=== PATIENT | female | born 1930 | race Caucasian/White ===

== ENCOUNTER 2018-07-24 12:10 | Emergency (ER) | payer MEDICARE ==
[~2018-07-24] VITALS: Ht 160 cm; Wt 58.5 kg
[2018-07-24] MEDS ORDERED: METOPROLOL TART50 MG PO (12:31)
[2018-07-24] MEDS ORDERED: LEVOTHYROXINE75 MCG PO (12:31)
[2018-07-24] MEDS ORDERED: ATORVASTATIN CA20 MG PO (12:31)
[2018-07-24] MEDS ORDERED: PANTOPRAZOLE SO40 MG PO (12:31)
[2018-07-24] MEDS ORDERED: FUROSEMIDE20 MG PO (12:31)
[2018-07-24] MEDS ORDERED: HYDRALAZINE HCL 20 MG/ML VIAL IV STA (13:50)
[2018-07-24] MEDS ORDERED: CLONIDINE HCL 0.2 MG TAB PO ONE (14:00)
[2018-07-24] MEDS ORDERED: LOSARTAN-HCTZ1 EAC1 PO (14:05)
== END 2018-07-24 15:10 | disposition home or self-care (01) ==
LOC: ER 12:10
DX: I10 Essential (primary) hypertension (principal); E03.9 Hypothyroidism, unspecified; K21.9 Gastro-esophageal reflux disease without esophagitis
CPT/HCPCS: 99282

== ENCOUNTER 2018-08-12 10:15 | Outpatient (RCR) | payer MEDICARE ==
[~2018-08-12 10:15] MED LIST: ATORVASTATIN CA20 MG PO; FUROSEMIDE20 MG PO; HYDROCORTISONE 1% CREAM 30 GM TUBE ONE; LEVOTHYROXINE75 MCG PO; LIDOCAINE VISC 2% SOLN 15 ML UDC ONE; LOSARTAN-HCTZ1 EAC1 PO; METOPROLOL TART50 MG PO; PANTOPRAZOLE SO40 MG PO
[2018-08-12] MEDS ORDERED: TRIAMCINOLONE ACET 0.1% CREAM 15 GM TUBE ONE (11:46)
== END 2018-08-20 ==
LOC: WCC 10:15
PROVIDERS: ATTEND Family Medicine Adult Medicine
DX: S81.802A Unspecified open wound, left lower leg, initial encounter (principal); R60.9 Edema, unspecified; I87.2 Venous insufficiency (chronic) (peripheral); E03.9 Hypothyroidism, unspecified; I10 Essential (primary) hypertension; E78.01 Familial hypercholesterolemia; K21.9 Gastro-esophageal reflux disease without esophagitis; X58.XXXA Exposure to other specified factors, initial encounter

== ENCOUNTER 2018-09-03 12:58 | Outpatient (RCR) | payer MEDICARE ==
[~2018-09-03 12:58] MED LIST changes: +FLUOCINONIDE 0.05% 1 EA/15 GM TUBE ONE; -HYDROCORTISONE 1% CREAM 30 GM TUBE ONE; -LIDOCAINE VISC 2% SOLN 15 ML UDC ONE; +MINERAL OIL/PETROLAT/GLYCERI 6OZ BTL ONE
[2018-09-03] MEDS ORDERED: AMLODIPINE BESYL5 MG PO (22:22)
[2018-09-03] MEDS ORDERED: CLONIDINE HCL0.1 MG PO (22:22)
== END 2018-09-19 ==
LOC: WCC 12:58
PROVIDERS: ATTEND Family Medicine Adult Medicine
DX: S81.802A Unspecified open wound, left lower leg, initial encounter (principal); L30.8 Other specified dermatitis; I87.2 Venous insufficiency (chronic) (peripheral); R60.9 Edema, unspecified; I10 Essential (primary) hypertension; E03.9 Hypothyroidism, unspecified; E78.01 Familial hypercholesterolemia; K21.9 Gastro-esophageal reflux disease without esophagitis; X58.XXXA Exposure to other specified factors, initial encounter

== ENCOUNTER 2018-09-03 17:53 | Inpatient (IN) | payer MEDICARE ==
[~2018-09-03] VITALS: Ht 160 cm; Wt 64.0 kg
[~2018-09-03 17:53] MED LIST changes: -FLUOCINONIDE 0.05% 1 EA/15 GM TUBE ONE; -MINERAL OIL/PETROLAT/GLYCERI 6OZ BTL ONE
[2018-09-03 21:28] LABS: BASOPHILS % 0.2 % (0.0-1.0); HEMATOCRIT 35.4 % (34.2-44.1); HEMOGLOBIN 12.2 g/dL (12.0-16.0); LYMPHOCYTES # (AUTO) 0.9 (1.0-3.2); LYMPHOCYTES % 4.3 % (18.0-39.1); MEAN CORPUSCULAR HEMOGLOBIN 29.4 pg (28-32); MEAN CORPUSCULAR HGB CONC 34.5 g/dL (31-35); MEAN CORPUSCULAR VOLUME 85.3 fL (81-99); MONOCYTES # (AUTO) 1.2 (0.2-0.8); MONOCYTES % 6.1 % (4.4-11.3); NEUTROPHILS # (AUTO) 17.5 (2.1-6.9); NEUTROPHILS % 87.5 % (38.7-80.0); PLATELET COUNT 170 x10e3/uL (140-360); RED BLOOD COUNT 4.15 x10e6/uL (3.6-5.1); RED CELL DISTRIBUTION WIDTH 13.5 % (11.7-14.4)
[2018-09-03 21:44] LABS: ALANINE AMINOTRANSFERASE 24 IU/L (0-55); ALBUMIN 3.5 g/dL (3.5-5.0); ALBUMIN/GLOBULIN RATIO 1.4 (0.8-2.0); ALKALINE PHOSPHATASE 62 IU/L (40-150); ANION GAP 16.6 mmol/L (8-16); BLOOD UREA NITROGEN 32 mg/dL (7-26); BUN/CREATININE RATIO 38 (6-25); CALCIUM 9.8 mg/dL (8.4-10.2); CARBON DIOXIDE 23 mmol/L (22-29); CHLORIDE 92 mmol/L (98-107); CREATININE, SERUM 0.85 mg/dL (0.57-1.11); EST GLOMERULAR FILTRATION RATE > 60 ML/MIN (60-); GLUCOSE 146 mg/dL (74-118); POTASSIUM 3.6 mmol/L (3.5-5.1); SODIUM 128 mmol/L (136-145)
[2018-09-03] MEDS ORDERED: CLINDAMYCIN PHOS 900MG/ 50ML 50 ML IV STA (21:58)
[2018-09-03] MEDS ORDERED: CLINDAMYCIN 600MG / 50ML 50 ML IV SCH (22:00)
[2018-09-03] MEDS ORDERED: CLONIDINE HCL0.1 MG PO (22:22)
[2018-09-03] MEDS ORDERED: AMLODIPINE BESYL5 MG PO (22:22)
[2018-09-03 23:15] VITALS: BP 107/51
[2018-09-04] VITALS (9 sets, daily range): BP systolic 107–130; BP diastolic 51–60
[2018-09-04 05:28] LABS: BASOPHILS % 0.1 % (0.0-1.0); EOSINOPHILS % 0.1 % (0.0-6.0); HEMATOCRIT 30.1 % (34.2-44.1); HEMOGLOBIN 10.3 g/dL (12.0-16.0); LYMPHOCYTES # (AUTO) 0.8 (1.0-3.2); LYMPHOCYTES % 5.3 % (18.0-39.1); MEAN CORPUSCULAR HGB CONC 34.2 g/dL (31-35); MEAN CORPUSCULAR VOLUME 84.8 fL (81-99); MONOCYTES # (AUTO) 0.9 (0.2-0.8); MONOCYTES % 5.9 % (4.4-11.3); NEUTROPHILS # (AUTO) 12.8 (2.1-6.9); NEUTROPHILS % 86.9 % (38.7-80.0); PLATELET COUNT 143 x10e3/uL (140-360); RED BLOOD COUNT 3.55 x10e6/uL (3.6-5.1); RED CELL DISTRIBUTION WIDTH 13.5 % (11.7-14.4)
[2018-09-04 05:53] LABS: ANION GAP 12.1 mmol/L (8-16); BLOOD UREA NITROGEN 26 mg/dL (7-26); BUN/CREATININE RATIO 37 (6-25); CALCIUM 8.8 mg/dL (8.4-10.2); CARBON DIOXIDE 24 mmol/L (22-29); CHLORIDE 93 mmol/L (98-107); CREATININE, SERUM 0.71 mg/dL (0.57-1.11); EST GLOMERULAR FILTRATION RATE > 60 ML/MIN (60-); GLUCOSE 144 mg/dL (74-118); POTASSIUM 3.1 mmol/L (3.5-5.1); SODIUM 126 mmol/L (136-145)
[2018-09-04] MEDS ORDERED: SODIUM CHLORIDE 0.9% 250ML 250 ML ONE (06:14)
[2018-09-04] MEDS: LEVOFLOXACIN 500MG/D5W 100ML 100 ML IV SCH (06:18)
[2018-09-04] MEDS: VANCOMYCIN 1GM/NS 250 ML 250 ML IV SCH ×2 (07:13→17:44)
[2018-09-04] MEDS ORDERED: POTASSIUM CHLORIDE 20MEQ/15ML UDC PO NR (07:45)
[2018-09-04] MEDS: METOPROLOL TARTRATE 50 MG TAB PO SCH ×2 (08:22→17:44)
[2018-09-04] MEDS: CLONIDINE HCL 0.1 MG TAB PO SCH ×2 (08:22→17:44)
[2018-09-04] MEDS: LOSARTAN POTASSIUM 100 MG TAB PO SCH (08:22)
[2018-09-04] MEDS: AMLODIPINE BESYLATE 5 MG TAB PO SCH (08:23)
[2018-09-04] MEDS: PANTOPRAZOLE SOD 40 MG TABEC PO SCH (08:23)
[2018-09-04] MEDS ORDERED: LEVOTHYROXINE SODIUM 75 MCG TAB PO SCH (09:00)
[2018-09-04] MEDS: BALSAM PERU/CASTOR OIL 60 GM OINT...G. TP SCH ×2 (10:35→20:27)
[2018-09-04] MEDS ORDERED: POTASSIUM CHLORIDE 20MEQ/15ML UDC PO SCH ×2 (12:00)
[2018-09-04] MEDS: ATORVASTATIN 20 MG TAB PO SCH (20:26)
[2018-09-05] VITALS (9 sets, daily range): BP systolic 124–164; BP diastolic 58–73
[2018-09-05] MEDS: LEVOFLOXACIN 500MG/D5W 100ML 100 ML IV SCH (04:28)
[2018-09-05] MEDS: LEVOTHYROXINE SODIUM 75 MCG TAB PO SCH (05:32)
[2018-09-05] MEDS: VANCOMYCIN 1GM/NS 250 ML 250 ML IV SCH (05:32)
[2018-09-05 06:01] LABS: BASOPHILS % 0.2 % (0.0-1.0); EOSINOPHILS % 0.2 % (0.0-6.0); HEMATOCRIT 29.9 % (34.2-44.1); LYMPHOCYTES # (AUTO) 0.7 (1.0-3.2); LYMPHOCYTES % 6.3 % (18.0-39.1); MEAN CORPUSCULAR HEMOGLOBIN 29.2 pg (28-32); MEAN CORPUSCULAR HGB CONC 33.4 g/dL (31-35); MEAN CORPUSCULAR VOLUME 87.4 fL (81-99); MONOCYTES # (AUTO) 0.7 (0.2-0.8); MONOCYTES % 6.2 % (4.4-11.3); NEUTROPHILS # (AUTO) 8.9 (2.1-6.9); NEUTROPHILS % 84.3 % (38.7-80.0); PLATELET COUNT 146 x10e3/uL (140-360); RED BLOOD COUNT 3.42 x10e6/uL (3.6-5.1); RED CELL DISTRIBUTION WIDTH 13.9 % (11.7-14.4)
[2018-09-05 06:22] LABS: ALANINE AMINOTRANSFERASE 17 IU/L (0-55); ALBUMIN 2.6 g/dL (3.5-5.0); ALBUMIN/GLOBULIN RATIO 1.1 (0.8-2.0); ALKALINE PHOSPHATASE 51 IU/L (40-150); ANION GAP 13.5 mmol/L (8-16); BLOOD UREA NITROGEN 25 mg/dL (7-26); BUN/CREATININE RATIO 36 (6-25); CALCIUM 8.7 mg/dL (8.4-10.2); CARBON DIOXIDE 20 mmol/L (22-29); CHLORIDE 102 mmol/L (98-107); EST GLOMERULAR FILTRATION RATE > 60 ML/MIN (60-); GLUCOSE 170 mg/dL (74-118); POTASSIUM 4.5 mmol/L (3.5-5.1); SODIUM 131 mmol/L (136-145)
[2018-09-05 07:44] LABS: LYMPHOCYTES % (MANUAL) 3 % (19-48); METAMYELOCYTES % (MANUAL) 2 % (0-0); MONOCYTES % (MANUAL) 5 % (3.4-9.0); NEUTROPHILS % (MANUAL) 90 % (40-74)
[2018-09-05 07:49] LABS: PLATELET MORPHOLOGY COMMENT NORMAL; RBC MORPHOLOGY COMMENT NORMAL
[2018-09-05 07:50] LABS: PLATELET ESTIMATE ADEQUATE
[2018-09-05] MEDS: AMLODIPINE BESYLATE 5 MG TAB PO SCH (08:19)
[2018-09-05] MEDS: PANTOPRAZOLE SOD 40 MG TABEC PO SCH (08:19)
[2018-09-05] MEDS: CLONIDINE HCL 0.1 MG TAB PO SCH ×2 (08:19→17:24)
[2018-09-05] MEDS: METOPROLOL TARTRATE 50 MG TAB PO SCH ×2 (08:19→17:24)
[2018-09-05] MEDS: LOSARTAN POTASSIUM 100 MG TAB PO SCH (08:19)
[2018-09-05] MEDS ORDERED: BALSAM PERU/CASTOR OIL 60 GM OINT...G. TP SCH (09:00)
[2018-09-05] MEDS: BALSAM PERU/CASTOR OIL 60 GM OINT...G. TP SCH ×2 (09:10→21:12)
[2018-09-05] MEDS: ATORVASTATIN 20 MG TAB PO SCH (21:05)
[2018-09-06] VITALS (8 sets, daily range): BP systolic 118–164; BP diastolic 56–76
[2018-09-06] MEDS: LEVOFLOXACIN 500MG/D5W 100ML 100 ML IV SCH (05:07)
[2018-09-06] MEDS: LEVOTHYROXINE SODIUM 75 MCG TAB PO SCH (06:21)
[2018-09-06] MEDS: AMLODIPINE BESYLATE 5 MG TAB PO SCH (09:00)
[2018-09-06] MEDS: BALSAM PERU/CASTOR OIL 60 GM OINT...G. TP SCH ×2 (09:00→20:51)
[2018-09-06] MEDS: CLONIDINE HCL 0.1 MG TAB PO SCH ×2 (09:00→17:23)
[2018-09-06] MEDS: PANTOPRAZOLE SOD 40 MG TABEC PO SCH (09:00)
[2018-09-06] MEDS: METOPROLOL TARTRATE 50 MG TAB PO SCH ×2 (09:00→17:23)
[2018-09-06] MEDS: LOSARTAN POTASSIUM 100 MG TAB PO SCH (09:00)
[2018-09-06] MEDS: ATORVASTATIN 20 MG TAB PO SCH (20:51)
[2018-09-07] VITALS (7 sets, daily range): BP systolic 117–172; BP diastolic 59–75
[2018-09-07] MEDS: LEVOFLOXACIN 500MG/D5W 100ML 100 ML IV SCH (04:51)
[2018-09-07] MEDS: LEVOTHYROXINE SODIUM 75 MCG TAB PO SCH (06:57)
[2018-09-07] MEDS: PANTOPRAZOLE SOD 40 MG TABEC PO SCH (07:58)
[2018-09-07] MEDS: BALSAM PERU/CASTOR OIL 60 GM OINT...G. TP SCH ×2 (07:58→21:17)
[2018-09-07] MEDS: METOPROLOL TARTRATE 50 MG TAB PO SCH ×2 (07:58→16:56)
[2018-09-07] MEDS: CLONIDINE HCL 0.1 MG TAB PO SCH ×2 (07:58→16:56)
[2018-09-07] MEDS: LOSARTAN POTASSIUM 100 MG TAB PO SCH (07:58)
[2018-09-07] MEDS: AMLODIPINE BESYLATE 5 MG TAB PO SCH (07:58)
[2018-09-07] MEDS: VANCOMYCIN 1GM/NS 250 ML 250 ML IV SCH (09:16)
[2018-09-07] MEDS: ATORVASTATIN 20 MG TAB PO SCH (21:11)
[2018-09-08] VITALS (7 sets, daily range): BP systolic 135–191; BP diastolic 61–76
[2018-09-08] MEDS ORDERED: CLONIDINE HCL 0.1 MG TAB PO STA (04:48)
[2018-09-08] MEDS ORDERED: HYDRALAZINE HCL 20 MG/ML VIAL IV PRN (05:00)
[2018-09-08] MEDS: LEVOFLOXACIN 500MG/D5W 100ML 100 ML IV SCH (05:06)
[2018-09-08] MEDS: LEVOTHYROXINE SODIUM 75 MCG TAB PO SCH (05:06)
[2018-09-08 05:10] LABS: BASOPHILS % 0.4 % (0.0-1.0); EOSINOPHILS # (AUTO) 0.1 (0.0-0.4); EOSINOPHILS % 0.7 % (0.0-6.0); HEMATOCRIT 32.1 % (34.2-44.1); HEMOGLOBIN 10.9 g/dL (12.0-16.0); LYMPHOCYTES % 10.1 % (18.0-39.1); MEAN CORPUSCULAR HEMOGLOBIN 29.1 pg (28-32); MEAN CORPUSCULAR VOLUME 85.6 fL (81-99); MONOCYTES # (AUTO) 0.7 (0.2-0.8); NEUTROPHILS # (AUTO) 7.5 (2.1-6.9); NEUTROPHILS % 78.5 % (38.7-80.0); PLATELET COUNT 169 x10e3/uL (140-360); RED BLOOD COUNT 3.75 x10e6/uL (3.6-5.1); RED CELL DISTRIBUTION WIDTH 13.6 % (11.7-14.4)
[2018-09-08 05:29] LABS: ALANINE AMINOTRANSFERASE 20 IU/L (0-55); ALBUMIN 2.9 g/dL (3.5-5.0); ALBUMIN/GLOBULIN RATIO 1.1 (0.8-2.0); ALKALINE PHOSPHATASE 53 IU/L (40-150); ANION GAP 14.1 mmol/L (8-16); BLOOD UREA NITROGEN 21 mg/dL (7-26); BUN/CREATININE RATIO 26 (6-25); CALCIUM 9.9 mg/dL (8.4-10.2); CARBON DIOXIDE 21 mmol/L (22-29); CHLORIDE 99 mmol/L (98-107); CREATININE, SERUM 0.81 mg/dL (0.57-1.11); EST GLOMERULAR FILTRATION RATE > 60 ML/MIN (60-); GLUCOSE 133 mg/dL (74-118); POTASSIUM 4.1 mmol/L (3.5-5.1); SODIUM 130 mmol/L (136-145)
[2018-09-08 07:28] LABS: ANISOCYTOSIS SLIGHT; BAND NEUTROPHILS % (MANUAL) 1 %; EOSINOPHILS % (MANUAL) 1 % (0-7); HYPOCHROMASIA SLIGHT; LYMPHOCYTES % (MANUAL) 7 % (19-48); MONOCYTES % (MANUAL) 4 % (3.4-9.0); NEUTROPHILS % (MANUAL) 84 % (40-74); PLATELET MORPHOLOGY COMMENT NORMAL; RBC MORPHOLOGY COMMENT NORMAL
[2018-09-08 07:29] LABS: PLATELET ESTIMATE ADEQUATE
[2018-09-08] MEDS: CLONIDINE HCL 0.1 MG TAB PO SCH ×2 (09:00→17:00)
[2018-09-08] MEDS: BALSAM PERU/CASTOR OIL 60 GM OINT...G. TP SCH ×2 (09:00→20:19)
[2018-09-08] MEDS: AMLODIPINE BESYLATE 5 MG TAB PO SCH (09:00)
[2018-09-08] MEDS: LOSARTAN POTASSIUM 100 MG TAB PO SCH (09:00)
[2018-09-08] MEDS: PANTOPRAZOLE SOD 40 MG TABEC PO SCH (09:00)
[2018-09-08] MEDS: METOPROLOL TARTRATE 50 MG TAB PO SCH ×2 (09:00→17:00)
[2018-09-08] MEDS: VANCOMYCIN 1GM/NS 250 ML 250 ML IV SCH (09:15)
[2018-09-08] MEDS: ATORVASTATIN 20 MG TAB PO SCH (20:19)
[2018-09-09] VITALS: BP 149/65
[2018-09-09 04:00] VITALS: BP 183/74
[2018-09-09] MEDS: LEVOFLOXACIN 500MG/D5W 100ML 100 ML IV SCH (05:15)
[2018-09-09] MEDS: LEVOTHYROXINE SODIUM 75 MCG TAB PO SCH (05:16)
[2018-09-09 08:04] VITALS: BP 162/72
[2018-09-09] MEDS: BALSAM PERU/CASTOR OIL 60 GM OINT...G. TP SCH (09:00)
[2018-09-09] MEDS: AMLODIPINE BESYLATE 5 MG TAB PO SCH (09:00)
[2018-09-09] MEDS: LOSARTAN POTASSIUM 100 MG TAB PO SCH (09:00)
[2018-09-09] MEDS: PANTOPRAZOLE SOD 40 MG TABEC PO SCH (09:00)
[2018-09-09] MEDS: CLONIDINE HCL 0.1 MG TAB PO SCH (09:00)
[2018-09-09] MEDS: METOPROLOL TARTRATE 50 MG TAB PO SCH (09:00)
[2018-09-09] MEDS: VANCOMYCIN 1GM/NS 250 ML 250 ML IV SCH (09:15)
[2018-09-09 11:53] VITALS: BP 119/58
== END 2018-09-09 11:58 | disposition home or self-care (01) | DRG 603 ==
LOC: ER 17:53 → ERHOLD 22:40 → MED/SURG3 23:12
PROVIDERS: ADMIT Internal Medicine; ATTEND Internal Medicine
DX: L03.115 Cellulitis of right lower limb (principal); E87.1 Hypo-osmolality and hyponatremia; R60.0 Localized edema; D72.829 Elevated white blood cell count, unspecified; E87.6 Hypokalemia; D64.9 Anemia, unspecified; E78.5 Hyperlipidemia, unspecified
CPT/HCPCS: 36415; 80048; 80053; 80202; 83605; 83735; 85025; 87040; 96361; 97139; 99284; J1956; J3370; J7050